=== PATIENT | male | born 1955 | race Caucasian/White ===

== ENCOUNTER 2016-09-18 16:02 | Observation (INO) | payer BC ==
[2016-09-18] VITALS (7 sets, daily range): BP systolic 167–225; BP diastolic 86–115; PULSE 65–79; RESP 17–25; TEMP 98.1–98.3; O2SAT 94–98
[~2016-09-18 16:02] MED LIST: ASPI81 PO; CO Q100C9 PO; CORE12.5 PO; HYDR12.56 PO; PERC5TAB12 PO; ROSU40 PO; TRAM50 PO; VITA20003 PO; ZETI10TA5 PO
--- NOTE | 2016-09-18 16:15 | PD ---
Physical Exam Date Seen by Provider: September 18, 2016 Time Seen by Provider: 16:11 Narrative 61 y/o male with Hypertension and substernal pain off and on over the past 2 days. Thought it may have been Heartburn, but now worsening. took a SL Nitro this am without change in pain. Pain intermittent and 1/10 currently. Hx Cardiac Cath without stent 2004. Last Stress test 2011. [facility] Dr. Arteaga. Hypertensive but Stable Awaiting Bed Placement. Data Data Last Documented VS Vital Signs Date Time Temp Pulse Resp B/P Pulse Ox O2 Delivery O2 Flow Rate FiO2 09/18/16 16:07 98.3 79 17 225/115 98 MDM Medical Record Reviewed: Yes Supervised Visit with KRISTOPHER: Yes Condition: Stable Rishabh Garzon September 18, 2016 16:15
[2016-09-18] MEDS ORDERED: SODIUM CHLORID 0.9% 500 ML INJ 500 ML IV ONE (16:30)
[2016-09-18] MEDS ORDERED: NITROGLYCERIN 0.4 MG SL 25 TABS/BTL SL ONE (16:30)
[2016-09-18] MEDS ORDERED: ASPIRIN 325 MG TAB PO ONE (16:30)
[2016-09-18] MEDS ORDERED: VITA200012 PO (16:49)
[2016-09-18] MEDS ORDERED: AMLO5TAB2 PO (16:49)
[2016-09-18] MEDS ORDERED: VITA10002 PO (16:49)
[2016-09-18] MEDS ORDERED: JANU50TA8 PO (16:49)
[2016-09-18] MEDS ORDERED: VALS1TAB65 PO (16:49)
[2016-09-18] MEDS ORDERED: TURMCAP PO (16:49)
[2016-09-18] MEDS ORDERED: ZETI10TA5 PO (16:49)
[2016-09-18] MEDS ORDERED: ROSU10 PO (16:49)
[2016-09-18] MEDS ORDERED: CARV12.5 PO (16:49)
[2016-09-18] MEDS ORDERED: FURO1TAB62 PO (16:49)
[2016-09-18] MEDS ORDERED: ASPI1TAB91 PO (16:49)
[2016-09-18] MEDS ORDERED: CO Q200C PO (16:49)
[2016-09-18] MEDS ORDERED: DICL50TA PO (16:49)
--- NOTE | 2016-09-18 16:54 | RADRPT ---
EXAM DATE/TIME: 09/18/2016 16:30 [place] COMPARISON: CHEST SINGLE AP, September 30, 2013, 11:52. INDICATIONS : Chest pain, high blood pressure, short of breath MEDICAL HISTORY : Cerebrovascular disease. SURGICAL HISTORY : None. ENCOUNTER: Initial ACUITY: 1 day PAIN SCORE: 6/10 LOCATION: Bilateral chest FINDINGS: A single view of the chest demonstrates the lungs to be symmetrically aerated without evidence of mas s, infiltrate or effusion. The cardiomediastinal contours are unremarkable. Osseous structures are intact. CONCLUSION: No acute disease. Bunny Hanley MD on September 18, 2016 at 16:52 Board Certified Radiologist. This report was verified electronically.
[2016-09-18 16:58] LABS: AUTOMATED NEUTROPHIL # 4.5 TH/MM3 (1.8-7.7); BASOPHIL % 0.5 % (0.0-2.0); EOSINOPHIL # 0.1 TH/MM3 (0-0.4); EOSINOPHIL % 1.2 % (0.0-4.0); HEMATOCRIT 47.2 % (39.0-51.0); HEMO FLAGS DIFF FINAL; LYMPH % 16.9 % (9.0-44.0); LYMPHOCYTE # 1.1 TH/MM3 (1.0-4.8); MEAN CELL VOLUME 82.7 FL (80.0-100.0); MEAN CORPUSCULAR HEMOGLOBIN 27.3 PG (27.0-34.0); MONO % 12.3 % (0.0-8.0); NEUT % 69.1 % (16.0-70.0); PLATELET COUNT 167 TH/MM3 (150-450); RED BLOOD COUNT 5.71 MIL/MM3 (4.50-5.90); RED CELL DISTRIBUTION WIDTH 14.2 % (11.6-17.2); WHITE BLOOD COUNT 6.5 TH/MM3 (4.0-11.0)
--- NOTE | 2016-09-18 17:08 | PD ---
HPI Chief Complaint: Cardiac Complaint Time Seen by Provider: 17:04 Travel History International Travel<30 days: No Contact w/Intl Traveler<30days: No Traveled to known affect area: No History of Present Illness HPI 61-year-old male that presents to the ED for evaluation of chest pain in her blood pressure. Per patient he has had a blood pressure initially for a couple of days and has been not feeling well with slight headaches and sensation of not feeling well but not specifics. Per patient his been going on for a couple of days and he is noted to his blood pressure is high. He does take multiple blood pressure medications. Per patient yesterday history of having some chest discomfort. Per patient he does have a history of heart disease and follows with Dr. boateng. He states that the chest pain is not constant but comes and goes. Nothing seems to make it better or worse. Patient did took a nitroglycerin today minutes minimal relief other than for the blood pressure. He denies any shortness of breath. He states that he does have some pain at this time per patient is not constant and only comes and goes. Pressure-like. 2 out of 10. Has no allergies to medication. No recent travel. No history of surgeries or stands up that he has had a Per patient years ago and he was told that he did not need a stent because "his heart had already bypassed by itself ". He has a history of diabetes or high blood pressure. PFSH Past Medical History Arthritis: Yes Asthma: No Autoimmune Disease: No Blood Disorders: No Anxiety: No Depression: No Heart Rhythm Problems: No Cancer: No Cardiac Catheterization: Yes (HEART CATHS IN 2004 AND 2007) Cardiovascular Problems: Yes High Cholesterol: Yes Chemotherapy: No Chest Pain: Yes (2004) Congestive Heart Failure: No COPD: No Coronary Artery Disease: Yes Diabetes: Yes Patient Takes Glucophage: No Diminished Hearing: No Endocrine: No Gastrointestinal Disorders: No Glaucoma: No Genitourinary: No Hypertension: Yes Musculoskeletal: Yes Neurologic: No Psychiatric: No Reproductive: No Respiratory: Yes Immunizations Current: No Myocardial Infarction: Yes Radiation Therapy: No Sleep Apnea: No Thyroid Disease: No Past Surgical History AICD: No Cardiac Surgery: Yes (HEART CATH NO STENTS PLACED) Oral Surgery: Yes (TONCILECTOMY DURING CHILDHOOD) Pacemaker: No Tonsillectomy: Yes Other Surgery: Yes Social History Alcohol Use: Yes (2-3 GLASSES OF WINE PER NIGHT) Tobacco Use: No Substance Use: No Allergies-Medications (Allergen,Severity, Reaction): Coded Allergies: No Known Allergies (Verified , 09/18/16) Reported Meds & Prescriptions Reported Meds & Active Scripts Active Reported Turmeric Curcumin ([employer] Natural Products) 1 Cap 1,000 Mg PO DAILY Vitamin B-12 (Cyanocobalamin) 1,000 Mcg Tab 1,000 Mcg PO DAILY Diclofenac Potassium 50 Mg Tab 50 Mg PO DAILY PRN Co Q-10 (Coenzyme Q10 (Ubidecarenone)) 200 Mg Cap 200 Mg PO DAILY Aspirin Adult Low Strength (Aspirin) 81 Mg Tabdr 81 Mg PO DAILY Vitamin D3 (Cholecalciferol) 2,000 Unit Tab 2,000 Units PO DAILY Janumet (Sitagliptin-Metformin) 50-1,000 Mg Tab 1 Tab PO DAILY Coreg (Carvedilol) 12.5 Mg Tab 12.5 Mg PO BID Zetia (Ezetimibe) 10 Mg Tab 10 Mg PO DAILY Lasix (Furosemide) 20 Mg Tab 20 Mg PO DAILY Amlodipine (Amlodipine Besylate) 5 Mg Tab 5 Mg PO DAILY Crestor (Rosuvastatin Calcium) 10 Mg Tab 10 Mg PO DAILY Valsartan 160 Mg Tab 160 Mg PO DAILY Review of Systems Except as stated in HPI: all other systems reviewed are Neg Physical Exam Narrative GENERAL: SKIN: Warm and dry. HEAD: Atraumatic. Normocephalic. EYES: Pupils equal and round. No scleral icterus. No injection or drainage. ENT: No nasal bleeding or discharge. Mucous membranes pink and moist. Tongue is midline. No uvula deviation. NECK: Trachea midline. No JVD. CARDIOVASCULAR: Regular rate and rhythm. No murmurs, S3, S4. RESPIRATORY: No accessory muscle use. Clear to auscultation. Breath sounds equal bilaterally. GASTROINTESTINAL: Abdomen soft, non-tender, nondistended. Hepatic and splenic margins not palpable. MUSCULOSKELETAL: Extremities without clubbing, cyanosis, or edema. No obvious deformities. Full range of motion of the upper and lower extremities bilaterally. 2+ pulses bilaterally. NEUROLOGICAL: Awake and alert. No obvious cranial nerve deficits. Motor grossly within normal limits. Five out of 5 muscle strength in the arms and legs. Normal speech. PSYCHIATRIC: Appropriate mood and affect; insight and judgment normal. Data Data Last Documented VS Vital Signs Date Time Temp Pulse Resp B/P Pulse Ox O2 Delivery O2 Flow Rate FiO2 09/18/16 16:30 Room Air 09/18/16 16:30 94 09/18/16 16:29 74 25 193/93 09/18/16 16:07 98.3 Orders Electrocardiogram (09/18/16 16:27) Basic Metabolic Panel (Bmp) (09/18/16 16:27) B-Type Natriuretic Peptide (09/18/16:27) Ckmb (Isoenzyme) Profile (09/18/16:) Complete Blood Count With Diff (09/18/16:) Magnesium (Mg) (09/18/16:) Prothrombin Time / Inr (Pt) (09/18/16) Act Partial Throm Time (Ptt) (09/18/16) Troponin I (09/18/16) Chest, Single Ap (09/18/16) Ecg Monitoring (09/18/16:) Bilateral Bp Monitoring (09/18/16:) Iv Access Insert/Monitor (09/18/16) Oximetry (09/18/16) Oxygen Administration (09/18/16:) Aspirin (Aspirin) (09/18/16 16:30) Nitroglycerin Sl (Nitrostat Sl) (09/18/16 16:30) Sodium Chlorid 0.9% 500 Ml Inj (Ns 500 M (09/18/16 16:30) CKMB (09/18/16 16:35) CKMB% (09/18/16 16:35) Admit Order (Ed Use Only) (09/18/16 18:00) Activity Bed Rest With Brp (09/18/16 18:00) Vital Signs (Adult) Q4H (09/18/16 18:00) Cardiac Rhythm .As Directed (09/18/16 18:00) Notify Dr: Other .PRN (09/18/16 18:00) Notify Parameters (09/18/16 18:00) Resp Oxygen Nasal Cannula (09/18/16 ) Diet Heart Healthy (09/18/16 Dinner) Ckmb (Isoenzyme) Profile (09/18/16 19:35) Ckmb (Isoenzyme) Profile (09/18/16 22:35) Troponin I (09/18/16 19:35) Troponin I (09/18/16 22:35) Electrocardiogram (09/18/16 19:35) Electrocardiogram (09/18/16 22:35) ^ Obtain (09/18/16 18:00) Sodium Chloride 0.9% Flush (Ns Flush) (09/18/16 18:00) Sodium Chloride 0.9% Flush (Ns Flush) (09/18/16 21:00) Acetaminophen (Tylenol) (09/18/16 18:00) Acetamin-Hydrocod 325-7.5 Mg ([place] 7.5 (09/18/16 18:00) Ondansetron Inj (Zofran Inj) (09/18/16 18:00) Nitroglycerin 2% Oint (Nitroglycerin 2% (09/18/16 18:00) Explosive Technician / Telemetry ABE.Q8H (09/18/16 18:00) Labs Laboratory Tests Test 09/18/16 16:35 White Blood Count 6.5 TH/MM3 Red Blood Count 5.71 MIL/MM3 Hemoglobin 15.6 GM/DL Hematocrit 47.2 % Mean Corpuscular Volume 82.7 FL Mean Corpuscular Hemoglobin 27.3 PG Mean Corpuscular Hemoglobin 33.0 % Concent Red Cell Distribution Width 14.2 % Platelet Count 167 TH/MM3 Mean Platelet Volume 8.6 FL Neutrophils (%) (Auto) 69.1 % Lymphocytes (%) (Auto) 16.9 % Monocytes (%) (Auto) 12.3 % Eosinophils (%) (Auto) 1.2 % Basophils (%) (Auto) 0.5 % Neutrophils # (Auto) 4.5 TH/MM3 Lymphocytes # (Auto) 1.1 TH/MM3 Monocytes # (Auto) 0.8 TH/MM3 Eosinophils # (Auto) 0.1 TH/MM3 Basophils # (Auto) 0.0 TH/MM3 CBC Comment DIFF FINAL Differential Comment Prothrombin Time 10.8 SEC Prothromb Time International 1.0 RATIO Ratio Activated Partial 30.6 SEC Thromboplast Time Sodium Level 135 MEQ/L Potassium Level 4.1 MEQ/L Chloride Level 99 MEQ/L Carbon Dioxide Level 27.1 MEQ/L Anion Gap 9 MEQ/L Blood Urea Nitrogen 15 MG/DL Creatinine 1.19 MG/DL Estimat Glomerular Filtration 63 ML/MIN Rate Random Glucose 110 MG/DL Calcium Level 9.4 MG/DL Magnesium Level 2.2 MG/DL Total Creatine Kinase 609 U/L Creatine Kinase MB 13.3 NG/ML Creatine Kinase MB % 2.2 % Troponin I LESS THAN 0.02 NG/ML B-Type Natriuretic Peptide 56 PG/ML MDM Medical Decision Making Medical Screen Exam Complete: Yes Emergency Medical Condition: Yes Medical Record Reviewed: Yes Interpretation(s) EKG here showed sinus rhythm with no sign of acute ischemia or arrhythmia but by me and attending. CBC & BMP Diagram 09/18/16 16:35 CKMB slightly elevated troponin negative Last Impressions Chest X-Ray 09/18/16 1627 Signed Impressions: Service Date/Time: Sunday, September 18, 2016 16:30 - CONCLUSION: No acute disease. Bunny Hanley MD Differential Diagnosis Chest pain versus pneumonia versus a typical chest pain versus ACS Narrative Course 61-year-old male that presents to the ED for evaluation of chest pain. Patient was properly examined and was found to have signs and symptoms consistent appears to be concerning for cardiac chest pain. Hypertension noted. Labs and imaging ordered. Patient was given nitroglycerin and aspirin. Labs and imaging showed no sign of acute disease. Patient was reassured. I do believe the patient might be having angina. Patient does have a history of ACS. Has risk factors including age, high cholesterol, hypertension and diabetes. Because of this at the recommend admission for chest pain center for evaluation of possible stress test and serial enzymes. Patient is agreeable with this plan. Patient was admitted to the chest pain center Diagnosis Primary Impression: Chest pain in adult Condition: Stable Bubba Keene September 18, 2016 17:08
[2016-09-18 17:14] LABS: APTT (PATIENT) 30.6 SEC (24.3-30.1); PROTHROMBIN TIME - PATIENT 10.8 SEC (9.8-11.6)
[2016-09-18 17:32] LABS: ANION GAP 9 MEQ/L (5-15); BICARBONATE 27.1 MEQ/L (21.0-32.0); BLOOD UREA NITROGEN 15 MG/DL (7-18); CHLORIDE 99 MEQ/L (98-107); CREATINE KINASE 609 U/L (39-308); GLOMERULAR FILTRATION RATE 63 ML/MIN (>89); MAGNESIUM 2.2 MG/DL (1.5-2.5); POTASSIUM 4.1 MEQ/L (3.5-5.1); SODIUM (NA) 135 MEQ/L (136-145)
[2016-09-18 17:44] LABS: CKMB 13.3 NG/ML (0.5-3.6)
[2016-09-18] MEDS ORDERED: ACETAMINOPHEN 500 MG CPLT PO PRN (18:00)
[2016-09-18] MEDS ORDERED: SODIUM CHLORIDE 0.9% FLUSH 10 ML FLUSH IV FLUSH PRN (18:00)
[2016-09-18] MEDS ORDERED: ONDANSETRON HCL 4 MG/2 ML VIAL IV PRN (18:00)
[2016-09-18] MEDS ORDERED: ACETAMINOPHEN/HYDROcodone 325 MG/7.5 MG TAB PO PRN (18:00)
[2016-09-18] MEDS: NITROGLYCERIN 2% OINT 1 GM PACKET TOP SCH ×2 (18:12→23:57)
[2016-09-18] MEDS ORDERED: hydrALAZINE HCL 20 MG/ML VIAL IV PUSH ONE (19:00)
[2016-09-18 20:25] LABS: CREATINE KINASE 480 U/L (39-308)
[2016-09-18] MEDS: SODIUM CHLORIDE 0.9% FLUSH 10 ML FLUSH IV FLUSH SCH (21:17)
[2016-09-18 23:30] LABS: CREATINE KINASE 414 U/L (39-308)
[2016-09-18 23:42] LABS: CKMB 8.8 NG/ML (0.5-3.6)
[2016-09-19 00:22] VITALS: BP 139/78; PULSE 71; RESP 18; TEMP 98.5; O2SAT 95
[2016-09-19 04:26] VITALS: BP 156/93; PULSE 97; RESP 17; TEMP 98; O2SAT 98
[2016-09-19] MEDS: NITROGLYCERIN 2% OINT 1 GM PACKET TOP SCH (05:59)
[2016-09-19 07:08] VITALS: BP 173/90; PULSE 75; RESP 18; TEMP 98.1; O2SAT 94
[2016-09-19 07:42] VITALS: PULSE 73
[2016-09-19] MEDS ORDERED: DEXTROSE 50% IN WATER 50 ML VIAL(D50) IV PRN (07:45)
[2016-09-19] MEDS ORDERED: GLUCAGON 1 MG/ML VIAL IM/SQ PRN (07:45)
--- NOTE | 2016-09-19 07:53 | HHI.HP ---
[facility] Primary Care Physician Angie Cuellar MD Chief Complaint Chest pain History of Present Illness This is a 61-year-old male that presents to ED via private vehicle with history of CAD, diabetes, hypertension, and hyperlipidemia with a complaint of chest discomfort and hypertension. Patient states that 4 days ago began having a tingling sensation in the center of his chest. The first day it was intermittent lasting a few seconds at a time it recurred at least 20 times a day. He had no associated symptoms with it. He says continue to have it lasting for seconds also intermittently but not as frequently. Still no associated symptoms of nausea, shortness breath, or diaphoresis. He follows director of dance Dr. Dial and saws associate about 6 months ago. He states his last stress test was several years ago. He states his director of dance told him that a stress test always be abnormal. Upon reviewing records he had an abnormal outpatient stress test in 2008 and then had a heart catheterization with Dr. Dial that had totally occlude obtuse marginal that was fed by collaterals. He also states his blood pressure had been high yesterday while he was at work. He states his medication had been changed recently. He was placed on valsartan 160 mg a day to go along with carvedilol 12.5 mg twice daily and amlodipine 5 mg daily. Denies recent illness. Denies fevers or chills. Review of Systems General: Patient denies fevers, chills recent, and recent travel HEENT: Patient denies headache, sore throat, difficulty swallowing. Cardiovascular: Has the chest discomfort as mentioned above. Denies sensation of heart beating rapidly or irregularly. No syncope. Denies diaphoresis. Respiratory: Denies shortness of breath or inspirational chest discomfort. Denies coughing wheezing or hemoptysis. GI: Patient denies nausea, vomiting, diarrhea, abdominal pain, bloody stools. Musculoskeletal: Patient denies joint pain or edema. Denies calf pain or edema. Neurovascular: Patient denies numbness, tingling, weakness in extremities. Denies headache. Endocrine: Denies polyuria and polydipsia. Hematologic: Denies easy bruising. Skin: Denies rash or itching. Past Family Social History Allergies: Coded Allergies: No Known Allergies (Verified , 09/18/16) Past Medical History CAD with included obtuse marginal 2009 that was fed by collaterals. Hypertension, hyperlipidemia, diabetes, and obesity. Past Surgical History Cardiac catheterization without intervention. Tonsillectomy. Reported Medications Reported Meds & Active Scripts Active Reported Turmeric Curcumin ([employer] Natural Products) 1 Cap 1,000 Mg PO DAILY Vitamin B-12 (Cyanocobalamin) 1,000 Mcg Tab 1,000 Mcg PO DAILY Diclofenac Potassium 50 Mg Tab 50 Mg PO DAILY PRN Co Q-10 (Coenzyme Q10 (Ubidecarenone)) 200 Mg Cap 200 Mg PO DAILY Aspirin Adult Low Strength (Aspirin) 81 Mg Tabdr 81 Mg PO DAILY Vitamin D3 (Cholecalciferol) 2,000 Unit Tab 2,000 Units PO DAILY Janumet (Sitagliptin-Metformin) 50-1,000 Mg Tab 1 Tab PO DAILY Coreg (Carvedilol) 12.5 Mg Tab 12.5 Mg PO BID Zetia (Ezetimibe) 10 Mg Tab 10 Mg PO DAILY Lasix (Furosemide) 20 Mg Tab 20 Mg PO DAILY Amlodipine (Amlodipine Besylate) 5 Mg Tab 5 Mg PO DAILY Crestor (Rosuvastatin Calcium) 10 Mg Tab 10 Mg PO DAILY Valsartan 160 Mg Tab 160 Mg PO DAILY Active Ordered Medications Current Medications Medications (Trade) Dose Ordered Sig/Hector Route Start Time Stop Time Status Last Admin (NS Flush) 2 ml UNSCH PRN IV FLUSH 09/18/16 18:00 (NS Flush) 2 ml BID IV FLUSH 09/18/16 21:00 09/18/16 21:17 (Tylenol) 500 mg Q4H PRN PO 09/18/16 18:00 09/18/16 23:58 ([place] 7.5-325 Mg) 1 tab Q4H PRN PO 09/18/16 18:00 (Zofran Inj) 4 mg Q6H PRN IV 09/18/16 18:00 (Nitroglycerin 2% Oint) 1 inch Q6HR TOP 09/18/16 18:00 09/19/16 05:59 (Norvasc) 5 mg DAILY PO 09/19/16 09:00 UNV (Coreg) 12.5 mg BID PO 09/19/16 09:00 UNV (Zetia) 10 mg DAILY PO 09/19/16 09:00 UNV (Lasix) 20 mg DAILY PO 09/19/16 09:00 UNV (Diovan) 160 mg DAILY PO 09/19/16 09:00 UNV Non-Formulary Medication 10 mg DAILY PO 09/19/16 09:00 UNV (Aspirin) 325 mg DAILY PO 09/19/16 09:00 UNV Family History He states that his brother has a stent. Social History Patient is a lifetime nonsmoker. He has on average 2-3 glasses of wine a day. Denies illicit drugs. He is . 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 Physical Exam Vital Signs Vital Signs Date Time Temp Pulse Resp B/P Pulse Ox O2 Delivery O2 Flow Rate FiO2 09/19/16 07:08 98.1 75 18 173/90 94 09/19/16 04:26 98.0 97 17 156/93 98 09/19/16 00:22 98.5 71 18 139/78 95 09/18/16 23:50 76 09/18/16 20:03 98.1 72 18 177/86 95 09/18/16 20:00 95 09/18/16 19:10 65 24 167/87 95 Room Air 09/18/16 16:30 Room Air 09/18/16 16:30 94 Room Air 09/18/16 16:29 74 25 193/93 94 Room Air 09/18/16 16:07 98.3 79 17 225/115 98 Physical Exam GENERAL: This is a well-nourished, well-developed patient, in no apparent distress. Patient speaks in clear complete sentences. Patient is pleasant. He is obese at 141 kg. HEENT: Head is atraumatic and normocephalic. Neck is supple without lymphadenopathy and trachea is midline. No JVD or carotid bruits. CARDIOVASCULAR: Regular rate and rhythm without murmurs, gallops, or rubs. RESPIRATORY: Clear to auscultation. Breath sounds equal bilaterally. No wheezes , rales, or rhonchi. Chest wall is nontender. No use of accessory muscles. GASTROINTESTINAL: Abdomen is nontender, nondistended. Abdomen soft. No obvious pulsatile mass or bruit. No CVA tenderness. Strong femoral pulses bilaterally. Normal bowel sounds in all quadrants. MUSCULOSKELETAL: Patient is moving upper and lower extremities freely. No calf tenderness or edema, no Homans sign. Strong pulses in upper and lower extremities. NEUROLOGICAL: Patient is alert and oriented. Cranial nerves 2-12 are grossly intact. No focal deficits and speech is clear. SKIN: No rash and turgor is normal. Laboratory Laboratory Tests Test 09/18/16 09/18/16 09/18/16 16:35 20:00 22:40 White Blood Count 6.5 Red Blood Count 5.71 Hemoglobin 15.6 Hematocrit 47.2 Mean Corpuscular Volume 82.7 Mean Corpuscular Hemoglobin 27.3 Mean Corpuscular Hemoglobin 33.0 Concent Red Cell Distribution Width 14.2 Platelet Count 167 Mean Platelet Volume 8.6 Neutrophils (%) (Auto) 69.1 Lymphocytes (%) (Auto) 16.9 Monocytes (%) (Auto) 12.3 Eosinophils (%) (Auto) 1.2 Basophils (%) (Auto) 0.5 Neutrophils # (Auto) 4.5 Lymphocytes # (Auto) 1.1 Monocytes # (Auto) 0.8 Eosinophils # (Auto) 0.1 Basophils # (Auto) 0.0 CBC Comment DIFF FINAL Differential Comment Prothrombin Time 10.8 Prothromb Time International 1.0 Ratio Activated Partial 30.6 Thromboplast Time Sodium Level 135 Potassium Level 4.1 Chloride Level 99 Carbon Dioxide Level 27.1 Anion Gap 9 Blood Urea Nitrogen 15 Creatinine 1.19 Estimat Glomerular Filtration 63 Rate Random Glucose 110 Calcium Level 9.4 Magnesium Level 2.2 Total Creatine Kinase 609 480 414 Creatine Kinase MB 13.3 11.0 8.8 Creatine Kinase MB % 2.2 2.3 2.1 Troponin I LESS THAN 0.02 LESS THAN 0.02 LESS THAN 0.02 B-Type Natriuretic Peptide 56 Result Diagram: 09/18/16 1635 09/18/16 1635 Imaging Last 48 hours Impressions Chest X-Ray 09/18/16 1627 Signed Impressions: Service Date/Time: Sunday, September 18, 2016 16:30 - CONCLUSION: No acute disease. Bunny Hanley MD Course EKG has sinus rhythm with right bundle branch block. Assessment and Plan Assessment and Plan * Chest pain: His discomforts are atypical. He has had serial cardiac enzymes and EKGs for ruling out purposes. His troponins were normal. CPKs were elevated but CK-MB percent was normal. He is given IV hydration in the ED. He will be seen by Dr. Adamson cardiology in the chest pain center at that time we'll determine further plan. * Diabetes: Patient will be covered with sliding scale insulin. He should resume his medication at discharge and follow diabetic diet. * Hypertension: We will increase his amlodipine continue the medications. He will need to follow-up with his director of dance. * Hyperlipidemia: Continue current medication. * Obesity: Patient has been counseled on importance of diet,exercise, and weight loss. Patient is agreeable to this plan. Stable at this time. Rajesh Lou September 19, 2016 07:53
--- NOTE | 2016-09-19 08:22 | EKG ---
Date Performed: 09/18/2016 Time Performed: 16:23:24 PTAGE: 61 years EKG: Sinus rhythm RIGHT BUNDLE BRANCH BLOCK INFERIOR MYOCARDIAL INFARCTION ANTEROSEPTAL MYOCARDIAL INFARCTION ABNORMAL ECG Since PREVIOUS TRACING , no significant change noted PREVIOUS TRACIN09/30/2013 23.58 DOCTOR: Maria A Adamson Interpretating Date/Time 09/19/2016 08:21:31
--- NOTE | 2016-09-19 08:23 | EKG ---
Date Performed: 09/18/2016 Time Performed: 20:14:23 PTAGE: 61 years EKG: Sinus rhythm RIGHT BUNDLE BRANCH BLOCK INFERIOR MYOCARDIAL INFARCTION ANTEROSEPTAL MYOCARDIAL INFARCTION ABNORMAL ECG Since PREVIOUS TRACING , no significant change noted PREVIOUS TRACIN09/18/2016 16.23 DOCTOR: Maria A Adamson Interpretating Date/Time 09/19/2016 08:22:19
--- NOTE | 2016-09-19 08:24 | EKG ---
Date Performed: 09/18/2016 Time Performed: 22:33:26 PTAGE: 61 years EKG: Sinus rhythm RIGHT BUNDLE BRANCH BLOCK INFERIOR MYOCARDIAL INFARCTION ANTEROSEPTAL MYOCARDIAL INFARCTION ABNORMAL ECG Since PREVIOUS TRACING , no significant change noted PREVIOUS TRACIN09/18/2016 20.14 DOCTOR: Maria A Adamson Interpretating Date/Time 09/19/2016 08:22:31
[2016-09-19] MEDS ORDERED: AMLO10TA2 PO (08:28)
--- NOTE | 2016-09-19 08:30 | HHI.DCPOC ---
Discharge Care Plan Diagnosis: (1) Chest pain, atypical (2) Hypertension (3) DM (diabetes mellitus) (4) Hyperlipidemia (5) Hx of coronary artery disease (6) Obesity Goals to Promote Your Health * To prevent worsening of your condition and complications * To maintain your health at the optimal level Directions to Meet Your Goals Take your medications as prescribed Follow your dietary instruction Follow activity as directed Keep your appointments as scheduled Take your immunizations and boosters as scheduled If your symptoms worsen call your PCP, if no PCP go to Urgent Care Center or Emergency Room Smoking is Dangerous to Your Health. Avoid second hand smoke Call the 24-hour hour crisis hotline for domestic abuse at Rajesh Lou September 19, 2016 08:29
[2016-09-19] MEDS: SODIUM CHLORIDE 0.9% FLUSH 10 ML FLUSH IV FLUSH SCH (08:40)
[2016-09-19] MEDS ORDERED: amLODIPine BESYLATE 5 MG TAB PO ONE (08:45)
[2016-09-19] MEDS ORDERED: amLODIPine BESYLATE 5 MG TAB PO SCH (09:00)
[2016-09-19] MEDS ORDERED: EZETIMIBE 10 MG TAB PO SCH (09:00)
[2016-09-19] MEDS ORDERED: VALSARTAN 160 MG TAB PO SCH (09:00)
[2016-09-19] MEDS ORDERED: FUROSEMIDE 20 MG TAB PO SCH (09:00)
[2016-09-19] MEDS ORDERED: ASPIRIN 325 MG TAB PO SCH (09:00)
[2016-09-19] MEDS ORDERED: CARVEDILOL 12.5 MG TAB PO SCH (09:00)
[2016-09-19] MEDS ORDERED: ATORVASTATIN 20 MG TAB PO SCH (09:00)
[2016-09-19 09:12] VITALS: BP 176/89
[2016-09-19] MEDS ORDERED: INSULIN ASPART SUPPLEMENTAL SCALE SQ SCH (11:00)
== END 2016-09-19 10:00 | disposition home or self-care (01) ==
LOC: NEPE 16:02 → NEDA 18:04 → NEPFCDU 19:51
PROVIDERS: ADMIT Internal Medicine Cardiovascular Disease; ATTEND Internal Medicine Cardiovascular Disease
DX: R07.89 Other chest pain (principal); I25.10 Atherosclerotic heart disease of native coronary artery without angina pectoris; E11.9 Type 2 diabetes mellitus without complications; I45.10 Unspecified right bundle-branch block; R06.02 Shortness of breath; I10 Essential (primary) hypertension; E78.5 Hyperlipidemia, unspecified; E66.9 Obesity, unspecified; R74.8 Abnormal levels of other serum enzymes; M19.90 Unspecified osteoarthritis, unspecified site; I25.2 Old myocardial infarction; E78.00 Pure hypercholesterolemia, unspecified; Z79.84 Long term (current) use of oral hypoglycemic drugs; Z79.82 Long term (current) use of aspirin; Z79.899 Other long term (current) drug therapy
CPT/HCPCS: 71010; 80048; 82550; 82552; 83735; 83880; 84484; 85025; 85610; 85730; 93005; 99285; G0378; J0360; J7040